=== PATIENT | male | born 1955 | race Asian ===

== ENCOUNTER 2018-03-24 06:47 | Day surgery (SDC) | payer OTHER ==
[2018-03-24] MEDS ORDERED: FENTAnyl 50 MCG/ML VIAL (09:17)
[2018-03-24] MEDS ORDERED: MIDAZOLAM 1 MG/ML 2 ML INJ (09:17)
== END 2018-03-24 11:00 | disposition home or self-care (01) ==
LOC: GIL 06:47
DX: Z12.11 Encounter for screening for malignant neoplasm of colon (principal); D12.5 Benign neoplasm of sigmoid colon; K29.70 Gastritis, unspecified, without bleeding; K57.90 Diverticulosis of intestine, part unspecified, without perforation or abscess without bleeding; K64.8 Other hemorrhoids; I10 Essential (primary) hypertension
CPT/HCPCS: 43239; 88305; 88312